=== PATIENT | female | born 1970 | race Caucasian/White ===

== ENCOUNTER 2018-04-08 13:27 | Day surgery (SDC) | payer OTHER ==
[2018-04-08] MEDS ORDERED: PROPOFOL 40 ML (14:09)
== END 2018-04-08 17:41 | disposition home or self-care (01) ==
LOC: GIL 13:27
DX: K64.8 Other hemorrhoids (principal); K57.30 Diverticulosis of large intestine without perforation or abscess without bleeding; K29.60 Other gastritis without bleeding
CPT/HCPCS: 43239; 84703; 88305; 88312

== ENCOUNTER 2018-11-04 06:39 | Day surgery (SDC) | payer OTHER ==
[2018-11-04] MEDS: CEFAZOLIN 2 GM/50 ML (PMX) 50 ML IVPB (07:00)
[2018-11-04] MEDS: SOD CHLORIDE 0.9% 1,000 ML IV (09:38)
[2018-11-04 12:08] LABS: UR KETONES (Dip) 1+ mg/dL (NEGATIVE)
[2018-11-04] MEDS ORDERED: MIDAZOLAM 1 MG/ML 2 ML INJ (13:27)
[2018-11-04] MEDS ORDERED: BUPIVACAINE 0.5%/EPI (SDV) 30 ML INJ (13:29)
[2018-11-04] MEDS ORDERED: METOCLOPRAMIDE 10 MG INJ (13:31)
[2018-11-04] MEDS ORDERED: PROPOFOL 20 ML (13:31)
[2018-11-04] MEDS ORDERED: ROCURONIUM 50 MG INJ (13:31)
[2018-11-04] MEDS ORDERED: GLYCOPYRROLATE 0.4 MG INJ (13:31)
[2018-11-04] MEDS ORDERED: ONDANSETRON 4 MG INJ (13:31)
[2018-11-04] MEDS ORDERED: CEFAZOLIN 1 GM INJ (13:51)
[2018-11-04] MEDS ORDERED: HYDROmorphONE 2 MG/ML SYG (13:54)
[2018-11-04] MEDS: BUPIVACAINE 0.25%/EPI (SDV) 10 ML INJ (14:06)
[2018-11-04] MEDS: ISOSULFAN BLUE 1% 5 ML INJ SC (14:08)
[2018-11-04] MEDS ORDERED: NEOSTIGMINE 3 MG/3 ML SYRINGE (14:30)
[2018-11-04] MEDS ORDERED: IBUPROFEN 600 MG TAB PO (15:00)
[2018-11-04] MEDS ORDERED: ONDANSETRON 4 MG INJ IV (15:00)
[2018-11-04] MEDS ORDERED: morphine 2 MG INJ IV (15:00)
[2018-11-04] MEDS ORDERED: HYDROCODONE/APAP (5/325) TAB PO ×2 (15:00)
[2018-11-04] MEDS ORDERED: KETOROLAC 30 MG INJ IV (15:00)
[2018-11-04] MEDS ORDERED: FENTAnyl 50 MCG/ML VIAL (15:24)
[2018-11-04] MEDS ORDERED: DIPHENHYDRAMINE 50 MG INJ IV (15:30)
[2018-11-04] MEDS ORDERED: OXYCODONE/ACETAMINOPHEN (5/325) TAB PO ×2 (15:30)
[2018-11-04] MEDS ORDERED: HYDROmorphONE 1 MG/5 ML IV SYRINGE IV ×3 (15:30)
[2018-11-04] MEDS ORDERED: MEPERIDINE 25 MG INJ IV (15:30)
[2018-11-04] MEDS ORDERED: FENTAnyl 50 MCG/ML VIAL IV ×2 (15:30)
[2018-11-04] MEDS: FENTAnyl 50 MCG/ML VIAL IV ×2 (15:34→15:40)
[2018-11-04] MEDS: ONDANSETRON 4 MG INJ IV ×2 (15:54→16:16)
[2018-11-04] MEDS ORDERED: METOCLOPRAMIDE 10 MG INJ IV (18:00)
[2018-11-04] MEDS ORDERED: SCOPOLAMINE 1.5 MG PATCH TRANSDERM (18:00)
== END 2018-11-04 17:47 | disposition home or self-care (01) ==
LOC: SDS 06:39
DX: D05.12 Intraductal carcinoma in situ of left breast (principal); E03.9 Hypothyroidism, unspecified
CPT/HCPCS: 19301; 81005; 84703; 88307; 88342